=== PATIENT | male | born 1940 | race Caucasian/White ===

== ENCOUNTER 2020-03-05 12:46 | Emergency (ER) | payer MEDICARE ==
[~2020-03-05] VITALS: Ht 185.4 cm; Wt 105.0 kg
[2020-03-05 13:36] LABS: HEMATOCRIT 41.9 % (39.0-50.0); HEMOGLOBIN 13.3 g/dl (14.0-18.0); IMMATURE GRANULOCYTES 0.2 % (0.0-5.0); MEAN CELL VOLUME 95.9 fL CALC (80.0-100.0); MEAN CORPUSCULAR HGB 30.4 pG CALC (26.0-32.0); MEAN CORPUSCULAR HGB CONC 31.7 g/dL CAL (32.0-36.0); NEUT# 4.58 thou/uL (1.82-7.42); RED BLOOD COUNT 4.37 mill/uL (4.70-6.10); RED CELL DISTRI WIDTH 13.9 % (11.5-15.5)
[2020-03-05 13:39] LABS: INTERNATIONAL NORMALIZED RATIO 1.1 RATIO (0.7-1.3); PROTHROMBIN TIME 10.5 SECONDS (9.0-12.5)
[2020-03-05 13:40] LABS: ALKALINE PHOSPHATASE 85 u/l (38-126); ANION GAP 9 (6-22 (CALC)); BILIRUBIN, TOTAL 0.6 mg/dL (0.0-1.4); BUN 13 mg/dL (8-23); BUN/CREATININE RATIO 17 (12-20 (CALC)); CARBON DIOXIDE 28 mmol/l (22-30); CHLORIDE 103 mmol/l (95-108); CREATININE 0.8 mg/dL (0.7-1.3); GFR > 60 ML/MIN (>=60 (CALC)); GFR FOR AFR.AMER. > 60 ML/MIN (>=60 (CALC)); POTASSIUM 4.6 mmol/l (3.5-5.1); SGOT/AST 32 u/l (19-48); SODIUM 136 mmol/l (137-146); TOTAL PROTEIN 7.2 g/dL (6.3-8.2)
[2020-03-05 15:08] VITALS: BP 150/95
[2020-03-05] MEDS ORDERED: CEPHALEXIN500 MG PO ×2 (15:08→15:35)
[2020-03-05] MEDS ORDERED: GENTAMICIN SULF5 ML OS ×2 (15:08→15:35)
== END 2020-03-05 15:14 | disposition home or self-care (01) ==
LOC: ED 12:46
PROVIDERS: Emergency Medicine
DX: S90.862A Insect bite (nonvenomous), left foot, initial encounter (principal); H10.9 Unspecified conjunctivitis; E11.9 Type 2 diabetes mellitus without complications; W57.XXXA Bitten or stung by nonvenomous insect and other nonvenomous arthropods, initial encounter; Y93.89 Activity, other specified; Y92.79 Other farm location as the place of occurrence of the external cause; Z79.01 Long term (current) use of anticoagulants; Z86.711 Personal history of pulmonary embolism; M79.89 Other specified soft tissue disorders

== ENCOUNTER 2021-09-10 07:31 | Day surgery (SDC) | payer MEDICARE ==
[~2021-09-10] VITALS: Ht 185.4 cm; Wt 120.2 kg
[~2021-09-10 07:31] MED LIST: CEPHALEXIN500 MG PO; GENTAMICIN SULF5 ML OS
[2021-09-10] MEDS ORDERED: GLIMEPIRIDE2 MG PO (07:56)
[2021-09-10] MEDS ORDERED: METFORMIN500 M2 PO (07:56)
[2021-09-10] MEDS ORDERED: MELOXICAM7.5 MG PO (07:57)
[2021-09-10 10:10] VITALS: BP 177/85
== END 2021-09-10 09:55 | disposition home or self-care (01) ==
LOC: ORM 07:31
PROVIDERS: ATTEND Physical Medicine & Rehabilitation
DX: M47.816 Spondylosis without myelopathy or radiculopathy, lumbar region (principal); G89.4 Chronic pain syndrome

== ENCOUNTER 2021-10-08 07:44 | Day surgery (SDC) | payer MEDICARE ==
[~2021-10-08] VITALS: Ht 185.4 cm; Wt 122.5 kg
[~2021-10-08 07:44] MED LIST changes: +GLIMEPIRIDE2 MG PO; +MELOXICAM7.5 MG PO; +METFORMIN500 M2 PO
[2021-10-08 11:07] VITALS: BP 172/86
== END 2021-10-08 09:25 | disposition home or self-care (01) ==
LOC: ORM 07:44
PROVIDERS: ATTEND Physical Medicine & Rehabilitation
DX: M47.816 Spondylosis without myelopathy or radiculopathy, lumbar region (principal); G89.4 Chronic pain syndrome

== ENCOUNTER 2021-12-17 08:34 | Day surgery (SDC) | payer MEDICARE ==
[~2021-12-17] VITALS: Ht 182.9 cm; Wt 117.9 kg
[~2021-12-17 08:34] MED LIST changes: +CURCUMIN XX
[2021-12-17] MEDS ORDERED: MOBIC7.5 M1 PO (08:57)
[2021-12-17 10:37] VITALS: BP 170/77
== END 2021-12-17 10:59 | disposition home or self-care (01) ==
LOC: ORM 08:34
PROVIDERS: ATTEND Physical Medicine & Rehabilitation
DX: M47.816 Spondylosis without myelopathy or radiculopathy, lumbar region (principal)
CPT/HCPCS: J3490